=== PATIENT | male | born 1970 | race Caucasian/White ===

== ENCOUNTER → 2018-06-14 | Outpatient (CLI) | payer OTHER ==
--- NOTE | 2018-06-14 14:11 | DIAGNOSTIC IMAGING REPORT ---
R HAND MIN 3 VIEWS ROUTINE CLINICAL HISTORY: M10.9,M06.9,M79.646 pain COMPARISON: None. DISCUSSION: The bones and joint spaces appear intact. There is no evidence of fracture, dislocation or bony disease. There is no evidence for soft tissue swelling. IMPRESSION: Negative study. The above report was generated using voice recognition software. It may contain grammatical, syntax or spelling errors. Electronically signed by: Skyler Mensah M.D. 06/14/2018 2:09 PM Dictated Date/Time: 06/14/2018 2:08 PM
--- NOTE | 2018-06-14 14:13 | DIAGNOSTIC IMAGING REPORT ---
L ELBOW MIN 3 VIEWS ROUTINE CLINICAL HISTORY: M25.532 left elbow pain, arthritis COMPARISON: None. DISCUSSION: No acute fractures are visualized. There is no radiographic evidence of significant joint effusion. There is cortical irregularity involving the olecranon. There are calcifications within the soft tissues. The findings may relate to a prior triceps injury/avulsion. Clinical correlation in this regard is advocated. If deemed clinically necessary, an MRI could be obtained for further evaluation. IMPRESSION: Cortical irregularity involving the olecranon with adjacent soft tissue calcifications. The findings are nonspecific but could relate to a prior triceps injury/avulsion. Clinical correlation in this regard is advocated. Electronically signed by: Kalyan Traore M.D. 06/14/2018 2:11 PM Dictated Date/Time: 06/14/2018 2:09 PM
--- NOTE | 2018-06-14 14:15 | DIAGNOSTIC IMAGING REPORT ---
L WRIST MIN 3 VIEWS ROUTINE CLINICAL HISTORY: M25.532 Left wrist pain pain COMPARISON: None. DISCUSSION: The bones and joint spaces appear intact. There is no evidence of fracture, dislocation or bony disease. There is no evidence for soft tissue swelling. IMPRESSION: Negative study. The above report was generated using voice recognition software. It may contain grammatical, syntax or spelling errors. Electronically signed by: Skyler Mensah M.D. 06/14/2018 2:13 PM Dictated Date/Time: 06/14/2018 2:12 PM
--- NOTE | 2018-06-14 14:16 | DIAGNOSTIC IMAGING REPORT ---
L HAND MIN 3 VIEWS ROUTINE HISTORY: 47 years-old Male M10.9,M06.9,M79.646 acute left arm and hand pain with history of gout COMPARISON: Left wrist radiographs of same day TECHNIQUE: 3 views of the left hand FINDINGS: Mild radiocarpal and first metacarpal joint space narrowing with subchondral sclerosis and marginal osteophytosis compatible with osteoarthritis. No acute fracture, dislocation or erosive changes. Mild soft tissue swelling about the wrist and hand, most pronounced dorsally. IMPRESSION: 1. Soft tissue swelling without acute fracture, dislocation or evidence of erosive arthropathy. 2. Mild osteoarthritis as above. The above report was generated using voice recognition software. It may contain grammatical, syntax or spelling errors. Electronically signed by: Derrell Salter M.D. 06/14/2018 2:14 PM Dictated Date/Time: 06/14/2018 2:12 PM
[2018-06-14 15:05] LABS: URIC ACID 7.5 mg/dl (2.6-7.2)
== END | disposition home or self-care (01) ==
LOC: C.RAD1850 13:37
PROVIDERS: ATTEND Internal Medicine Rheumatology
DX: M25.532 Pain in left wrist (principal); M10.9 Gout, unspecified; M06.9 Rheumatoid arthritis, unspecified; M79.646 Pain in unspecified finger(s); M79.9 Soft tissue disorder, unspecified; M89.9 Disorder of bone, unspecified